=== PATIENT | female | born 1985 | race Caucasian/White ===

== ENCOUNTER 2018-07-10 10:39 | Emergency (ER) | END 2018-07-10 13:03 | disposition home or self-care (01) ==

== ENCOUNTER 2019-03-05 11:54 | Emergency (ER) | payer OTHER ==
[~2019-03-05] VITALS: Ht 160 cm; Wt 86.0 kg
[~2019-03-05 11:54] MED LIST: ACET325T33 PO; BACL10TA PO; ERYT1OIN6 LEFT EYE; IBUP-1542 PO; IBUP800T48 PO; LORA-441 PO; NAPR-688 PO; OMEP20CA16 PO
[2019-03-05 12:00] VITALS: Ht 160 cm; Wt 86.0 kg
[2019-03-05] MEDS ORDERED: ONDANSETRON (ODT) 4 MG TAB ODT STA (14:12)
[2019-03-05] MEDS ORDERED: IBUPROFEN 800 MG TAB PO ONE (14:30)
[2019-03-05 15:46] VITALS: BP 118/68; PULSE 71; RESP 20
--- NOTE | 2019-03-05 16:00 | ERD ---
ER Documentation Chief Complaint Chief Complaint c/o headache , nausea , lt side facial swelling x 2 days HPI Is a 33-year-old female patient who presents emergency room with complaint of a history of migraine headaches and also pain in left eye. Patient states that she has had migraine headaches for years and has been prescribed ibuprofen however last ibuprofen intake was 1 week ago. + Photophobia, + nausea, pain throbbing between temples, states this is a similar headache to what she has had in the past. Left eye with mild swelling to lower eyelid and cheek that patient states developed 2 days ago ureide denies blurred vision double vision any difficulty with her vision, no pain with movement of her eyeballs. No fevers, no chest pain, no shortness of breath, no dysuria. No chronic medical problems History and physical exam and plan of care discussion performed via crtts services ROS All systems reviewed and are negative except as per history of present illness. Medications Home Meds Active Scripts Erythromycin Base (Erythromycin) 1 Gm Oint...g., 1 APPLIC LEFT EYE QID for 7 Days, #1 TUBE Prov:LEONEL ALEJANDRA NP 03/05/19 Ibuprofen* (Motrin*) 800 Mg Tab, 800 MG PO Q6, #30 TAB Prov:LEONEL ALEJANDRA NP 03/05/19 Omeprazole* (Omeprazole*) 20 Mg Capsule.dr, 20 MG PO DAILY, #14 CAP Prov:SHELLEY SPENCE PA-C 08/27/18 Acetaminophen* (Tylenol*) 325 Mg Tablet, 2 TAB PO Q6 PRN for PAIN AND OR ELEVATED TEMP, #30 TAB Prov:SHELLEY SPENCE PA-C 08/27/18 Lorazepam* (Ativan*) 0.5 Mg Tablet, 0.5 MG PO QHS PRN for MUSCLE SPASMS, #10 TAB Prov:SHELLEY SPENCE PA-C 08/27/18 Naproxen* (Naproxen*) 500 Mg Tablet, 500 MG PO BID, #30 TAB Prov:SHELLEY SPENCE PA-C 08/27/18 Baclofen* (Baclofen*) 10 Mg Tablet, 10 MG PO TID, #15 TAB Prov:JUAN M PERRY MD 07/10/18 Ibuprofen* (Motrin*) 600 Mg Tab, 600 MG PO Q8, #20 TAB Prov:JUAN M PERRY MD 07/10/18 Allergies Allergies: Coded Allergies: No Known Allergy (Unverified , 07/10/18) PMhx/Soc History of Surgery: Yes ( X3) Anesthesia Reaction: No Hx Neurological Disorder: No Hx Respiratory Disorders: No Hx Cardiac Disorders: No Hx Psychiatric Problems: No Hx Miscellaneous Medical Probl: No Hx Alcohol Use: No Hx Substance Use: No Hx Tobacco Use: No Smoking Status: Never smoker FmHx Family History: No diabetes, No coronary disease, No other Physical Exam Vitals Vital Signs Date Temp Pulse Resp B/P (MAP) Pulse Ox O2 O2 Flow FiO2 Time Delivery Rate 03/05/19 98.7 71 20 118/68 100 Room Air 15:46 (85) 03/05/19 98.7 68 18 121/70 99 12:00 (87) Physical Exam Const: No acute distress Head: Atraumatic Eyes: Normal Conjunctiva, PERRL, EOMI, +hordeolum approx 1 mm to inside of left inner eyelid. Mild swelling and erythema to left lower eyelid, no exudate or crusting and eyelashes ENT: Normal External Ears, Nose and Mouth. Pharynx pink, moist, no lesions or exudate. TM clear BL. Neck: Full range of motion. No meningismus. No lymphadenopathy Resp: Clear to auscultation bilaterally, no wheezing, no rhonchi, no Rales Cardio: Regular rate and rhythm, no murmurs Abd: Soft, non tender, non distended. Normal bowel sounds, no organomegaly Skin: No petechiae or rashes Back: No midline or flank tenderness Neur: Awake and alert, CN II-XII intact, clear speech, steady gait, neg Romberg Psych: Normal Mood and Affect Results 24 hrs Current Medications Medications Dose Sig/Francy Start Time Status Last (Trade) Ordered Route PRN Stop Time Admin Dose Reason Admin Ondansetron 4 mg ONCE STAT 03/05/19 DC 03/05/19 HCl (Zofran ODT 14:12 14:22 Odt) 03/05/19 14:13 Ibuprofen 800 mg ONCE ONCE 03/05/19 DC 03/05/19 (Motrin) PO 14:30 14:22 03/05/19 14:31 Procedures/MDM PROCEDURES/MDM EKG: DIAGNOSTIC IMAGING: Not indicated, no neurological deficits -Medications: Ibuprofen, Zofran Patient tolerated medication well with no adverse reactions. Patient reported improvement in pain and nausea. MDM: The patient was well-appearing with VSS and without neurological deficits at time of reevaluation and discharge. Clinical and diagnostic exam not suggestive of infection, intracranial process, SAH, SDH, neoplasm, meningitis, encephalitis, aneurysm, thrombus, temporal arteritis, sinusitis. The patient has been provided with instructions on self-care including use of analgesia, reducing triggers, and need for close follow-up with primary care physician within 1-2 days for reevaluation. Patient's infection is localized to the conjunctiva with distinct hordeolum. Low suspicion for corneal laceration, foreign body, keratitis, iritis, blepharitis. Patient without symptoms including visual deficit, blurred vision, and pain. Patient has been provided with antibiotic ointment and instructed to follow-up with primary care physician for referral to residential specialist for possible drainage of hordeolum if it does not improve with antibiotics. Patient was also instructed on use of cold compresses and red flag signs and symptoms of worsening of condition and when to seek emergent medical treatment. DISPOSITION and PLAN: RX: Erythromycin, ibuprofen The patient has been discharge home to follow-up with community physician. Departure Diagnosis: Primary Impression: Hordeolum Hordeolum type: internum Laterality: left Eyelid: lower Qualified Codes: H00.025 - Hordeolum internum left lower eyelid Additional Impression: Headache Headache type: unspecified Headache chronicity pattern: chronic headache Intractability: not intractable Qualified Codes: R51 - Headache Condition: Stable Patient Instructions: Self-Care for Headaches, When Your Child Has a Stye [facility] Usted se richardson hecho un examen mdico de control que le indica que no est en olga condicin que requiera tratamiento urgente en el Departamento de Emergencia. Un estudio ms profundo y el tratamiento de chairez condicin pueden esperar sin ningn riesgo hasta que usted sea atendida/o en el consultorio de chairez mdico o olga clnica. Es responsabilidad suya arreglar olga sada para el seguimiento del willard. MANEJO DE CONDICIONES NO URGENTES EN EL FUTURO 1) Si usted tiene un mdico de atencin primaria: Usted debera llamar a chairez mdico de atencin primaria antes de venir al departamento de emergencia. Despus de las horas de consultorio, chairez doctor o chairez asociado/a est disponible por telfono. El mdico o enfermero de becky en el servicio telefnico puede asesorarle por kailey medio para atender el problema, o willard contrario se puede programar olga sada. 2) Si usted no tiene un mdico de atencin primaria: Llame al mdico o clnica de referencia que aparece abajo digna las horas de consultorio para hacer olga sada para que le vean. CLINICAS: [facility] [phone] [facility] [phone] [facility] [phone] [facility] [address] [address] [facility] [phone] [facility] [facility] [address] [facility] [phone] [facility] [phone] Additional Instructions: Llame al doctor nombrado abajo (Referral Sources) MAANA y sheryl olga SADA PARA DENTRO DE OLGA SEMANA. Dgale a la secretaria que nosotros le instruimos hacer esta sada.Avise o llame si chairez condicin se empeora antes de la sada. LEONEL ALEJANDRA NP Mar 05, 2019 16:00
== END 2019-03-05 15:47 | disposition home or self-care (01) ==
LOC: FTE 11:54
DX: H00.025 Hordeolum internum left lower eyelid (principal)
CPT/HCPCS: Z7502; Z7610; 99283